=== PATIENT | female | born 1955 | race Caucasian/White ===

== ENCOUNTER → 2019-12-22 13:32 | Outpatient (BNVA) | payer MEDICAID, SELFPAY | PROVIDERS: Family Provider Family Medicine; PCP Family Medicine; Visit Provider Nurse Practitioner | DX: M47.816 Spondylosis without myelopathy or radiculopathy, lumbar region (principal); M51.36 Other intervertebral disc degeneration, lumbar region; M54.2 Cervicalgia; Z79.891 Long term (current) use of opiate analgesic | CPT/HCPCS: 99214 ==

== ENCOUNTER → 2020-01-06 12:58 | Outpatient (BNVA) | payer MEDICAID, SELFPAY | PROVIDERS: Family Provider Family Medicine; PCP Family Medicine; Visit Provider Nurse Practitioner Psychiatric/Mental Health | DX: F33.2 Major depressive disorder, recurrent severe without psychotic features (principal); F43.12 Post-traumatic stress disorder, chronic; F41.1 Generalized anxiety disorder | CPT/HCPCS: 99213 ==

== ENCOUNTER → 2020-04-06 08:16 | Outpatient (BNVA) | payer MEDICAID, SELFPAY | PROVIDERS: Family Provider Family Medicine; PCP Family Medicine; Visit Provider Nurse Practitioner Psychiatric/Mental Health | DX: F33.2 Major depressive disorder, recurrent severe without psychotic features (principal); F43.12 Post-traumatic stress disorder, chronic; F41.1 Generalized anxiety disorder | CPT/HCPCS: 99213 ==

== ENCOUNTER → 2020-05-18 13:16 | Outpatient (BNVA) | payer MEDICAID, SELFPAY | PROVIDERS: Family Provider Family Medicine; PCP Nurse Practitioner Family; Visit Provider Anesthesiology | DX: M50.30 Other cervical disc degeneration, unspecified cervical region (principal); M47.816 Spondylosis without myelopathy or radiculopathy, lumbar region; M51.36 Other intervertebral disc degeneration, lumbar region; M96.1 Postlaminectomy syndrome, not elsewhere classified; Z79.891 Long term (current) use of opiate analgesic | CPT/HCPCS: 99214 ==

== ENCOUNTER → 2020-06-15 16:38 | Outpatient (BNVA) | payer MEDICAID, SELFPAY | PROVIDERS: Family Provider Family Medicine; PCP Nurse Practitioner Family; Visit Provider Nurse Practitioner Family | DX: S86.911A Strain of unspecified muscle(s) and tendon(s) at lower leg level, right leg, initial encounter (principal); E78.2 Mixed hyperlipidemia; E03.9 Hypothyroidism, unspecified; R53.83 Other fatigue; E55.9 Vitamin D deficiency, unspecified; Z79.899 Other long term (current) drug therapy; M25.519 Pain in unspecified shoulder; J44.9 Chronic obstructive pulmonary disease, unspecified; M17.11 Unilateral primary osteoarthritis, right knee | CPT/HCPCS: 73030; 73562; 80053; 80061; 81003; 82306; 83036; 84443; 85007; 85027 ==

== ENCOUNTER → 2020-06-16 13:02 | Outpatient (BNVA) | payer MEDICAID, SELFPAY | PROVIDERS: Family Provider Family Medicine; PCP Nurse Practitioner Family; Visit Provider Anesthesiology | DX: M50.30 Other cervical disc degeneration, unspecified cervical region (principal); M47.816 Spondylosis without myelopathy or radiculopathy, lumbar region; M51.36 Other intervertebral disc degeneration, lumbar region; M96.1 Postlaminectomy syndrome, not elsewhere classified; Z79.891 Long term (current) use of opiate analgesic | CPT/HCPCS: 99213; 99214 ==

== ENCOUNTER → 2020-06-22 08:40 | Outpatient (BNVA) | payer MEDICAID, SELFPAY | PROVIDERS: Family Provider Family Medicine; PCP Nurse Practitioner Family; Visit Provider Nurse Practitioner Psychiatric/Mental Health | DX: F33.2 Major depressive disorder, recurrent severe without psychotic features (principal); F43.12 Post-traumatic stress disorder, chronic; F41.1 Generalized anxiety disorder | CPT/HCPCS: 99214 ==

== ENCOUNTER → 2020-07-14 11:01 | Outpatient (BNVA) | payer MEDICAID, SELFPAY | PROVIDERS: Family Provider Family Medicine; PCP Nurse Practitioner Family; Visit Provider Anesthesiology | DX: M47.816 Spondylosis without myelopathy or radiculopathy, lumbar region (principal); M51.36 Other intervertebral disc degeneration, lumbar region; M96.1 Postlaminectomy syndrome, not elsewhere classified; M50.30 Other cervical disc degeneration, unspecified cervical region; Z79.891 Long term (current) use of opiate analgesic | CPT/HCPCS: 99213; 99214 ==

== ENCOUNTER → 2020-08-05 08:16 | Outpatient (BNVA) | payer MEDICAID, SELFPAY | PROVIDERS: Family Provider Family Medicine; PCP Nurse Practitioner Family; Visit Provider Nurse Practitioner Psychiatric/Mental Health | DX: F33.2 Major depressive disorder, recurrent severe without psychotic features (principal); F43.12 Post-traumatic stress disorder, chronic; F41.1 Generalized anxiety disorder | CPT/HCPCS: 99214 ==

== ENCOUNTER → 2020-08-17 08:28 | Outpatient (BNVA) | payer MEDICAID, SELFPAY | PROVIDERS: Family Provider Family Medicine; PCP Nurse Practitioner Family; Visit Provider Nurse Practitioner Psychiatric/Mental Health | DX: F33.2 Major depressive disorder, recurrent severe without psychotic features (principal); F43.12 Post-traumatic stress disorder, chronic; F41.1 Generalized anxiety disorder; G47.00 Insomnia, unspecified | CPT/HCPCS: 99214 ==

== ENCOUNTER → 2020-09-07 08:18 | Outpatient (BNVA) | payer MEDICAID, SELFPAY | PROVIDERS: Family Provider Family Medicine; PCP Nurse Practitioner Family; Visit Provider Nurse Practitioner Psychiatric/Mental Health | DX: F33.2 Major depressive disorder, recurrent severe without psychotic features (principal); F43.12 Post-traumatic stress disorder, chronic; F41.1 Generalized anxiety disorder; G47.00 Insomnia, unspecified | CPT/HCPCS: 99214 ==

== ENCOUNTER → 2020-09-08 13:00 | Outpatient (BNVA) | payer MEDICAID, SELFPAY | PROVIDERS: Family Provider Family Medicine; PCP Nurse Practitioner Family; Visit Provider Anesthesiology | DX: M47.816 Spondylosis without myelopathy or radiculopathy, lumbar region (principal); M51.36 Other intervertebral disc degeneration, lumbar region; M50.30 Other cervical disc degeneration, unspecified cervical region; M96.1 Postlaminectomy syndrome, not elsewhere classified; Z79.891 Long term (current) use of opiate analgesic | CPT/HCPCS: 99213; 99214 ==

== ENCOUNTER → 2020-09-20 16:30 | Outpatient (BNVA) | payer MEDICAID, SELFPAY | PROVIDERS: Family Provider Family Medicine; PCP Nurse Practitioner Family; Visit Provider Family Medicine | DX: Z20.828 Contact with and (suspected) exposure to other viral communicable diseases (principal); R05 Cough | CPT/HCPCS: 87400; 87635 ==

== ENCOUNTER → 2020-10-19 10:48 | Outpatient (BNVA) | payer MEDICAID, SELFPAY | PROVIDERS: Family Provider Family Medicine; PCP Nurse Practitioner Family; Visit Provider Nurse Practitioner Family | DX: E03.9 Hypothyroidism, unspecified (principal); M10.9 Gout, unspecified; E11.9 Type 2 diabetes mellitus without complications; M19.90 Unspecified osteoarthritis, unspecified site; Z12.31 Encounter for screening mammogram for malignant neoplasm of breast | CPT/HCPCS: 80053; 81003; 83036; 84443; 84550; 85025 ==

== ENCOUNTER → 2020-10-27 08:27 | Outpatient (BNVA) | payer MEDICAID, SELFPAY | PROVIDERS: Family Provider Family Medicine; PCP Nurse Practitioner Family; Visit Provider Nurse Practitioner Psychiatric/Mental Health | DX: F33.2 Major depressive disorder, recurrent severe without psychotic features (principal); F43.12 Post-traumatic stress disorder, chronic; F41.1 Generalized anxiety disorder; G47.00 Insomnia, unspecified | CPT/HCPCS: 99213 ==

== ENCOUNTER → 2020-10-31 16:00 | Outpatient (BNVA) | payer MEDICAID, SELFPAY | PROVIDERS: Family Provider Family Medicine; PCP Nurse Practitioner Family; Visit Provider Family Medicine | DX: E03.9 Hypothyroidism, unspecified (principal); M25.569 Pain in unspecified knee; M10.9 Gout, unspecified; J01.90 Acute sinusitis, unspecified; B96.89 Other specified bacterial agents as the cause of diseases classified elsewhere | CPT/HCPCS: 85025 ==

== ENCOUNTER → 2020-11-09 12:57 | Outpatient (BNVA) | payer MEDICAID, SELFPAY | PROVIDERS: Family Provider Family Medicine; PCP Nurse Practitioner Family; Visit Provider Anesthesiology | DX: M47.816 Spondylosis without myelopathy or radiculopathy, lumbar region (principal); M51.36 Other intervertebral disc degeneration, lumbar region; M96.1 Postlaminectomy syndrome, not elsewhere classified; M50.30 Other cervical disc degeneration, unspecified cervical region; M25.511 Pain in right shoulder; S86.911A Strain of unspecified muscle(s) and tendon(s) at lower leg level, right leg, initial encounter; X58.XXXA Exposure to other specified factors, initial encounter; Z79.891 Long term (current) use of opiate analgesic | CPT/HCPCS: 99214 ==

== ENCOUNTER → 2020-12-13 13:34 | Outpatient (BNVA) | payer MEDICARE, MEDICAID, SELFPAY | PROVIDERS: Family Provider Family Medicine; PCP Nurse Practitioner Family; Visit Provider Nurse Practitioner | DX: M47.816 Spondylosis without myelopathy or radiculopathy, lumbar region (principal); M51.36 Other intervertebral disc degeneration, lumbar region; M50.30 Other cervical disc degeneration, unspecified cervical region; M96.1 Postlaminectomy syndrome, not elsewhere classified; Z79.891 Long term (current) use of opiate analgesic | CPT/HCPCS: 99214 ==

== ENCOUNTER → 2021-01-06 12:30 | Outpatient (BNVA) | payer MEDICARE, MEDICAID, SELFPAY | PROVIDERS: Family Provider Family Medicine; PCP Nurse Practitioner Family; Visit Provider Anesthesiology | DX: M47.816 Spondylosis without myelopathy or radiculopathy, lumbar region (principal); M96.1 Postlaminectomy syndrome, not elsewhere classified; M51.36 Other intervertebral disc degeneration, lumbar region; M50.30 Other cervical disc degeneration, unspecified cervical region; M25.551 Pain in right hip; Z79.891 Long term (current) use of opiate analgesic | CPT/HCPCS: 99213 ==

== ENCOUNTER → 2021-01-25 07:38 | Outpatient (BNVA) | payer MEDICARE, MEDICAID, SELFPAY | PROVIDERS: Family Provider Family Medicine; PCP Nurse Practitioner Family; Visit Provider Nurse Practitioner Psychiatric/Mental Health | DX: F33.2 Major depressive disorder, recurrent severe without psychotic features (principal); F43.12 Post-traumatic stress disorder, chronic; F41.1 Generalized anxiety disorder; G47.00 Insomnia, unspecified | CPT/HCPCS: 99214 ==

== ENCOUNTER 2021-02-08 14:55 | Outpatient (CLI) | payer MEDICARE, MEDICAID, SELFPAY ==
--- NOTE | 2021-02-08 15:30 | MM_ITS ---
WS: [id number] BILATERAL SCREENING DIGITAL MAMMOGRAM WITH CAD HISTORY: Z12.31 - Encounter for screening mammogram for malignant neoplasm of breast COMPARISON: 08/11/2019 and 06/13/2018 Bilateral CC and MLO views submitted. Computer aided detection analyzed. Breast composition: There are scattered areas of fibroglandular density. No suspicious masses, microc alcifications or architectural distortion. Benign calcifications LEFT breast. MM/[place] [id number] IMPRESSION: BI-RADS: 2-Benign FOLLOW UP: 1 Year Follow-up
== END 2021-02-08 14:56 | disposition home or self-care (01) ==
LOC: RADSHAW 14:57
PROVIDERS: PCP Nurse Practitioner Family; Visit Provider Nurse Practitioner Family
DX: Z12.31 Encounter for screening mammogram for malignant neoplasm of breast (principal)
CPT/HCPCS: 77067

== ENCOUNTER 2021-03-03 08:03 | Day surgery (SDC) | payer MEDICARE, MEDICAID, SELFPAY ==
[2021-03-03 08:46] VITALS: BP 107/75; PULSE 61; RESP 18; TEMP 36.4; O2SAT 95
[2021-03-03] MEDS: sodium chloride 0.9% 1,000 ML 30 ML IV (08:54)
--- NOTE | 2021-03-03 09:15 | ANES.PREANE2 ---
Pre-Anesthetic Assessment Pre-Anesthetic Assessment: Height/Weight: Height 1.55 m Temp Pulse Resp BP Pulse Ox 97.6 F 61 18 107/75 95 03/03/21 08:46 03/03/21 08:46 03/03/21 08:46 03/03/21 08:46 03/03/21 08:46 Preop Diagnosis: d Proposed Procedure: Operation Date: 03/03/21 09:30 Proposed Procedures p EGD Dilation W/ Bougie 86287 r11.0(Not Applicable) - Papo Pastor MD Was Beta Cj taken within 24 hours: Yes Was Clonidine taken within 24 hours: N/A Last intake: Intake Last Liquid Date 03/02/21 Last Liquid Time 23:00 Last Solid Date 03/02/21 Last Solid Time 18:00 Social: Social History: Tobacco and No alcohol Exam: Pre-Anes Outpt Exam: alert, oriented x 3, clear to auscultation bilaterally and regular rate & rhythm Airway: Submandibular: WNL Cervical ROM: WNL MP: 2 Dentition: False Pulmonary: Pulmonary: COPD CV/HEM: CV/HEM: CAD and HTN GI: GI: GERD Metabolic: Metabolic: Morbid obesity and Thyroid Musc/skel: Comments: chronic pain/opioid Anesthetic Plan: ASA status: 3 Anesthesia: MAC Risk of > 500 ml blood loss (7ml/kg in children): No Meds/Allergies Current Medications: Current Medications Generic Name Dose Route Start Last Admin Trade Name Freq PRN Reason Stop Dose Admin Sodium Chloride 1,000 mls @ 30 ml s/hr 03/03/21 08:45 03/03/21 08:54 Sodium Chloride 0.9% IV 03/04/21 08:44 30 mls/hr .Q24H ANASTACIA Administration PFSH Anesthesia PFSH: Medical History AC joint pain Arthritis Breast cancer screening by mammogram Cervical post-laminectomy syndrome Chronic idiopathic constipation Chronic nausea Chronic obstructive pulmonary disease Chronic post-traumatic stress disorder DDD (degenerative disc disease), cervical DDD (degenerative disc disease), lumbar Facet syndrome, lumbar Fatigue Generalized anxiety disorder Gout Hypothyroid Insomnia Long-term current use of opiate analgesic Major depressive disorder, recurrent severe without psychotic features Medication management Mixed hyperlipidemia Pain management contract signed Strain of right knee Vitamin D deficiency Surgical History S/P appendectomy S/P cholecystectomy S/P partial hysterectomy S/P right inguinal hernia repair S/P tubal ligation Family History Other Cancer Diabetes Heart disease Social History Smoking and tobacco status: former smoker Second hand smoke exposure: No Alcohol intake: never History of recent travel: No Data Anesthesia Cardiac Studies: No Data to Display
--- NOTE | 2021-03-03 09:28 | P.HP_ITS ---
Same Day Surgery H&P Indication for Procedure/HPI DATE OF PROCEDURE: March 03, 2021 CHIEF COMPLAINT/INDICATIONFOR SURGICAL PROCEDURE: Ongoing nausea and dysphagia PREOP DIAGNOSIS: d PLANNED PROCEDRUE: Operation Date: 03/03/21 09:30 Proposed Procedures p EGD Dilation W/ Bougie 26136 r11.0(Not Applicable) - Papo Pastor MD Medications/Allergies* Home Medications Medication Instructions Recorded Confirmed Type aspirin 81 mg chewable tablet 81 mg PO DAILY 12/21/19 03/02/21 History fenofibrate nanocrystallized 145 145 mg PO DAILY 12/21/19 03/02/21 History mg tablet nitroglycerin 0.4 mg sublingual 0.4 mg SUBLINGUAL Q5M PRN 12/21/19 03/02/21 History tablet simvastatin 40 mg tablet 40 mg PO DAILY 07/05/20 03/02/21 History levocetirizine 5 mg tablet 5 mg PO DAILY 11/30/20 03/02/21 History potassium 99 mg tablet 99 mg PO DAILY tab 11/30/20 03/02/21 History simethicone 125 mg capsule 125 mg PO DAILY PRN 11/30/20 03/02/21 History allopurinol 100 mg PO DAILY 02/22/21 03/02/21 History ergocalciferol (vitamin D2) 1,250 mcg PO DAILY 02/22/21 03/02/21 History levothyroxine 50 mcg PO DAILY 02/22/21 03/02/21 History polyethylene glycol 3350 17 g PO DAILY 02/22/21 03/02/21 History Allergies/Adverse Reactions Allergy/AdvReac Type Severity Reaction Status Date / Time fluticasone Allergy ALGY Verified 02/08/21 13:45 [From Advair Diskus] salmeterol Allergy ALGY-Anaphy Verified 02/08/21 13:45 [From Advair Diskus] laxis butorphanol [From Stadol] AdvReac MAKES Verified 02/08/21 13:45 HER CRAZY fluoxetine [From Prozac] AdvReac rash Verified 02/08/21 13:45 Current Medications: Generic Name Dose Route Start Last Admin Trade Name Freq PRN Reason Stop Dose Admin Sodium Chloride 1,000 mls @ 30 mls/hr 03/03/21 08:45 03/03/21 08:54 Sodium Chloride 0.9% IV 03/04/21 08:44 30 mls/hr .Q24H ANASTACIA Administration Pertinent History/Comorbid Conditions* Medical History (Updated 01/26/21 @ 19:10 by SIL Martins) AC joint pain Arthritis Breast cancer screening by mammogram Cervical post-laminectomy syndrome Chronic idiopathic constipation Chronic nausea Chronic obstructive pulmonary disease Chronic post-traumatic stress disorder DDD (degenerative disc disease), cervical DDD (degenerative disc disease), lumbar Facet syndrome, lumbar Fatigue Generalized anxiety disorder Gout Hypothyroid Insomnia Long-term current use of opiate analgesic Major depressive disorder, recurrent severe without psychotic features Medication management Mixed hyperlipidemia Pain management contract signed Strain of right knee Vitamin D deficiency Surgical History (Updated 06/15/20 @ 16:21 by SIL Martins) S/P appendectomy S/P cholecystectomy S/P partial hysterectomy S/P right inguinal hernia repair S/P tubal ligation Family History (Updated 12/21/19 @ 14:20 by Casandra Maria LPN) Diabetes Heart disease Cancer Social History Smoking and tobacco status: former smoker Second hand smoke exposure: No Alcohol intake: never History of recent travel: No Pertinent Exam Findings alert, oriented x 3, clear to auscultation bilaterally, regular rate & rhythm and procedure specific exam findings Recommendations Surgery/Procedure today Coding Level of Care Code Acute Ultrasonic Tester for [facility]
[2021-03-03 09:55] VITALS: BP 113/80; PULSE 54; RESP 16; TEMP 36.3; O2SAT 54
--- NOTE | 2021-03-03 10:40 | ANE.PACU2 ---
Inpatient post-anesthesia follow up: Airway intact: Yes Vital signs: Temperature 97.4 F Pulse Rate 54 Respiratory Rate 16 Blood Pressure 113/80 Pulse Oximetry 54 Oxygen Delivery Me thod Room Air Oxygen Flow Rate Fraction of Inspir ed Oxygen Hydration adequate: Yes Nausea and vomiting: No Pain level: 1 Mental status: Baseline
[2021-03-06 07:11] LABS: H. Pylori / CLO Test Negative
== END 2021-03-03 10:30 | disposition home or self-care (01) ==
PROVIDERS: PCP Nurse Practitioner Family; Visit Provider Internal Medicine
DX: R13.10 Dysphagia, unspecified (principal); R11.0 Nausea; K21.00 Gastro-esophageal reflux disease with esophagitis, without bleeding; K29.70 Gastritis, unspecified, without bleeding; Z79.82 Long term (current) use of aspirin; M19.90 Unspecified osteoarthritis, unspecified site; E03.9 Hypothyroidism, unspecified; Z79.891 Long term (current) use of opiate analgesic; E78.2 Mixed hyperlipidemia; Z87.891 Personal history of nicotine dependence; J44.9 Chronic obstructive pulmonary disease, unspecified; I25.10 Atherosclerotic heart disease of native coronary artery without angina pectoris; I10 Essential (primary) hypertension; E66.01 Morbid (severe) obesity due to excess calories
CPT/HCPCS: 43239; 87077; 96360; 96361; J2704; J7030

== ENCOUNTER → 2021-03-08 13:26 | Outpatient (BNVA) | payer MEDICARE, MEDICAID, SELFPAY | PROVIDERS: PCP Nurse Practitioner Family; Visit Provider Anesthesiology | DX: M51.36 Other intervertebral disc degeneration, lumbar region (principal); M47.816 Spondylosis without myelopathy or radiculopathy, lumbar region; M25.551 Pain in right hip; M96.1 Postlaminectomy syndrome, not elsewhere classified; M50.30 Other cervical disc degeneration, unspecified cervical region; Z79.891 Long term (current) use of opiate analgesic | CPT/HCPCS: 99213 ==

== ENCOUNTER → 2021-03-23 15:22 | Outpatient (BNVA) | payer MEDICARE, MEDICAID, SELFPAY | PROVIDERS: PCP Nurse Practitioner Family; Visit Provider Nurse Practitioner Family | DX: J06.9 Acute upper respiratory infection, unspecified (principal); R11.0 Nausea; R68.89 Other general symptoms and signs | CPT/HCPCS: 87400 ==

== ENCOUNTER → 2021-03-31 15:54 | Outpatient (BNVA) | payer MEDICARE, MEDICAID, SELFPAY | PROVIDERS: PCP Nurse Practitioner Family; Visit Provider Nurse Practitioner Family | DX: R30.0 Dysuria (principal) | CPT/HCPCS: 81000 ==

== ENCOUNTER → 2021-04-26 07:24 | Outpatient (BNVA) | payer MEDICARE, MEDICAID, SELFPAY | PROVIDERS: PCP Nurse Practitioner Family; Visit Provider Nurse Practitioner Psychiatric/Mental Health | DX: F33.2 Major depressive disorder, recurrent severe without psychotic features (principal); F43.12 Post-traumatic stress disorder, chronic; F41.1 Generalized anxiety disorder; G47.00 Insomnia, unspecified | CPT/HCPCS: 99214 ==

== ENCOUNTER 2021-05-03 12:52 | Outpatient (CLI) | payer MEDICARE, MEDICAID, SELFPAY ==
[2021-05-03] MEDS: iohexol 300 mg/mL 50 mL Btl PO (13:41)
--- NOTE | 2021-05-03 14:30 | CT_ITS ---
WS: [id number] CT ABDOMEN PELVIS TECHNIQUE: Contrast-enhanced CT of the abdomen and pelvis with coronal and sagittal reformatted image s. CLINICAL INFORMATION: R10.31 - Right lower quadrant pain COMPARISON: CT 4 DLP: 1117.[address] scans at [facility] use at least one of these dose optimization techniques: automat ed exposure control; mA and/or kV adjustment per patient size (includes targeted exams where dose is matched to clinical indication); or iterative reconstruction. FINDINGS: Diffuse fatty infiltration liver. Normal portal vein and splenic vein. Cholecystectomy clips. Mild fa tty atrophy of the pancreas. Normal spleen. Normal GE junction. Lung bases are well aerated. Adrenal glands are normal. Normal renal parenchymal enhancement. No hydronephrosis. Left renal cyst measuring 3.5 x 3.2 CM. Normal caliber abdominal aorta. Aortic calcification. Normal sigmoid colon. No evidence of small or large bowel obstruction. Prior ventral abdominal wall h ernia repair. Mild lumbar curve. Prior hysterectomy. CT/CT abdomen pelvis w con* [id number] IMPRESSION: 1. Diffuse fatty infiltration of the liver. Hepatomegaly. 2. Prior cholecystectomy. 3. No hydronephrosis in either kidney. 4. Left renal cyst measuring 3.5 x 3.2 CM. 5. No free fluid in the abdomen or pelvis. 6. No abdominal or pelvic lymphadenopathy. No inguinal lymphadenopathy.
[2021-05-03 14:44] LABS: Blood Urea Nitrogen 19 mg/dL (8-23); Glomerular Filtration Rate 45.1 mL/min (90-130)
[2021-05-03] MEDS: iodixanol 320 mg/mL 100mL Btl IV (14:50)
== END 2021-05-03 12:53 | disposition home or self-care (01) ==
LOC: RADWPI 12:53
PROVIDERS: PCP Nurse Practitioner Family; Visit Provider Surgery
DX: R10.31 Right lower quadrant pain (principal); R10.11 Right upper quadrant pain; K76.0 Fatty (change of) liver, not elsewhere classified; R16.0 Hepatomegaly, not elsewhere classified; Z90.49 Acquired absence of other specified parts of digestive tract; N28.1 Cyst of kidney, acquired
CPT/HCPCS: 74177; 82565; 84520; Q9967

== ENCOUNTER → 2021-05-09 12:18 | Outpatient (BNVA) | payer MEDICARE, MEDICAID, SELFPAY | PROVIDERS: PCP Nurse Practitioner Family; Visit Provider Anesthesiology | DX: G89.29 Other chronic pain (principal); M51.36 Other intervertebral disc degeneration, lumbar region; M47.816 Spondylosis without myelopathy or radiculopathy, lumbar region; M96.1 Postlaminectomy syndrome, not elsewhere classified; M50.30 Other cervical disc degeneration, unspecified cervical region; Z79.891 Long term (current) use of opiate analgesic; Z87.891 Personal history of nicotine dependence | CPT/HCPCS: 99214 ==

== ENCOUNTER → 2021-05-11 15:18 | Outpatient (BNVA) | payer MEDICARE, MEDICAID, SELFPAY | PROVIDERS: PCP Nurse Practitioner Family; Visit Provider Nurse Practitioner Family | DX: J44.9 Chronic obstructive pulmonary disease, unspecified (principal); M19.90 Unspecified osteoarthritis, unspecified site; Z98.890 Other specified postprocedural states; E11.9 Type 2 diabetes mellitus without complications; M10.9 Gout, unspecified; E78.2 Mixed hyperlipidemia; E55.9 Vitamin D deficiency, unspecified; E03.9 Hypothyroidism, unspecified | CPT/HCPCS: 73502; 80053; 80061; 81003; 82306; 83036; 84443; 85025 ==

== ENCOUNTER → 2021-05-29 08:53 | Outpatient (BNVA) | payer MEDICARE, MEDICAID, SELFPAY | PROVIDERS: PCP Nurse Practitioner Family; Visit Provider Nurse Practitioner Family | DX: R94.4 Abnormal results of kidney function studies (principal) | CPT/HCPCS: 82043 ==

== ENCOUNTER 2021-05-31 15:21 | Outpatient (CLI) | payer MEDICARE, MEDICAID, SELFPAY ==
--- NOTE | 2021-05-31 15:36 | XR_ITS ---
WS: [id number] Lumbar spine, AP and erect, L5-S1 spot, both obliques, lateral erect in flexion, extension and neutra l position, 05/31/2021 Clinical Data: M79.604 - Pain in right leg Comparison: None. Findings: No compression fractures or subluxation is seen. There is degenerative disc narrowing at L3-L4, L4-L5 and L5-S1. There is osteoarthritic spurring from L1 through L5. The transverse processes and SI join ts are normal. There is a dextroscoliosis. The oblique films show no spondylolysis. No limitation of motion or sublu xation is seen on flexion or extension. There is a large amount of fecal material throughout the colo n. XR/XR lumbar spine 6V w f/e [id number] Impression: 1. Dextroscoliosis with osteoarthritis and degenerative disc narrowing at L3-L4 through L5-S1. 2. No spondylolysis. 3. Negative for limitation of motion or subluxation on flexion or extension.
== END 2021-05-31 15:22 | disposition home or self-care (01) ==
PROVIDERS: PCP Nurse Practitioner Family; Visit Provider Nurse Practitioner Family
DX: M79.604 Pain in right leg (principal); M54.5 Low back pain; M41.86 Other forms of scoliosis, lumbar region; M47.816 Spondylosis without myelopathy or radiculopathy, lumbar region
CPT/HCPCS: 72114

== ENCOUNTER 2021-06-27 06:00 | Outpatient (RCR) | payer MEDICARE, MEDICAID, SELFPAY | END 2021-07-11 23:59 | disposition home or self-care (01) | LOC: WPT 06:00 | PROVIDERS: PCP Nurse Practitioner Family; Referring Provider Nurse Practitioner Family; Visit Provider Nurse Practitioner Family | DX: M54.9 Dorsalgia, unspecified (principal); G89.29 Other chronic pain; M79.604 Pain in right leg | CPT/HCPCS: 97110; 97112; 97140; 97163 ==

== ENCOUNTER → 2021-06-28 11:49 | Outpatient (BNVA) | payer MEDICARE, MEDICAID, SELFPAY | PROVIDERS: PCP Nurse Practitioner Family; Visit Provider Nurse Practitioner Family | DX: R94.4 Abnormal results of kidney function studies (principal) | CPT/HCPCS: 82043 ==

== ENCOUNTER → 2021-07-04 14:20 | Outpatient (BNVA) | payer MEDICARE, MEDICAID, SELFPAY | PROVIDERS: PCP Nurse Practitioner Family; Visit Provider Anesthesiology | DX: G89.29 Other chronic pain (principal); M51.36 Other intervertebral disc degeneration, lumbar region; M47.816 Spondylosis without myelopathy or radiculopathy, lumbar region; M50.30 Other cervical disc degeneration, unspecified cervical region; M25.511 Pain in right shoulder; M96.1 Postlaminectomy syndrome, not elsewhere classified; Z98.890 Other specified postprocedural states; Z79.891 Long term (current) use of opiate analgesic; Z87.891 Personal history of nicotine dependence | CPT/HCPCS: 99214 ==

== ENCOUNTER 2021-07-12 06:00 | Outpatient (RCR) | payer MEDICARE, MEDICAID, SELFPAY | END 2021-08-10 23:59 | disposition home or self-care (01) | LOC: WPT 06:00 | PROVIDERS: PCP Nurse Practitioner Family; Referring Provider Nurse Practitioner Family; Visit Provider Nurse Practitioner Family | DX: M54.9 Dorsalgia, unspecified (principal); G89.29 Other chronic pain; M79.604 Pain in right leg | CPT/HCPCS: 97110 ==

== ENCOUNTER → 2021-07-24 07:30 | Outpatient (BNVA) | payer MEDICARE, MEDICAID, SELFPAY | PROVIDERS: PCP Nurse Practitioner Family; Visit Provider Nurse Practitioner Psychiatric/Mental Health | DX: F43.12 Post-traumatic stress disorder, chronic (principal); F41.1 Generalized anxiety disorder; G47.00 Insomnia, unspecified; F33.2 Major depressive disorder, recurrent severe without psychotic features | CPT/HCPCS: 99214 ==

== ENCOUNTER → 2021-09-08 13:21 | Outpatient (BNVA) | payer MEDICARE, MEDICAID, SELFPAY | PROVIDERS: PCP Nurse Practitioner Family; Visit Provider Anesthesiology | DX: G89.29 Other chronic pain (principal); M50.30 Other cervical disc degeneration, unspecified cervical region; M51.36 Other intervertebral disc degeneration, lumbar region; M47.816 Spondylosis without myelopathy or radiculopathy, lumbar region; M96.1 Postlaminectomy syndrome, not elsewhere classified; Z98.890 Other specified postprocedural states; Z79.899 Other long term (current) drug therapy; Z79.891 Long term (current) use of opiate analgesic | CPT/HCPCS: 99214 ==

== ENCOUNTER → 2021-10-31 13:44 | Outpatient (BNVA) | payer MEDICARE, MEDICAID, SELFPAY | PROVIDERS: PCP Nurse Practitioner Family; Visit Provider Anesthesiology | DX: G89.29 Other chronic pain (principal); M50.30 Other cervical disc degeneration, unspecified cervical region; M25.511 Pain in right shoulder; M51.36 Other intervertebral disc degeneration, lumbar region; M47.816 Spondylosis without myelopathy or radiculopathy, lumbar region; M96.1 Postlaminectomy syndrome, not elsewhere classified; Z98.890 Other specified postprocedural states; Z79.891 Long term (current) use of opiate analgesic | CPT/HCPCS: 99214 ==

== ENCOUNTER 2022-01-17 11:23 | Outpatient (CLI) | payer MEDICARE, MEDICAID, SELFPAY ==
--- NOTE | 2022-01-17 12:06 | CT_ITS ---
WS: [id number] LDCT LUNG CANCER SCREENING TECHNIQUE: Noncontrast CT of the chest with coronal and sagittal reformatted images. CLINICAL INFORMATION: NICOTINE DEPENDENCE, CIGARETTES COMPARISON: None. DLP: 80.01 mGy.cm DIvol: Mean CTDIvol: 1.60 (mGy) All CT scans at [facility] use at least one of these dose optimization techniques: automat ed exposure control; mA and/or kV adjustment per patient size (includes targeted exams where dose is matched to clinical indication); or iterative reconstruction. FINDINGS: Mild chronic emphysematous changes. No acute pulmonary infiltrates. Noncalcified nodule RIGHT upper l obe measuring 6 mm. Calcified granuloma RIGHT upper lobe. Slight atelectasis in the lingula. Slightly ectatic ascending thoracic aorta measuring 3.7 cm. No mediastinal or hilar lymphadenopathy. Calcified hilar nodes. Coronary calcification. Normal GE junction. Cholecystectomy clips. Adrenal gla nds are normal. LEFT upper pole renal cyst measuring 4.3 cm. Fatty atrophy of the pancreas. Splenic g ranulomas. Mild thoracic kyphosis. Postoperative changes lower cervical spine. CT/CT lung screening [id number] IMPRESSION: LUNG-RADS: 2-Benign Appearance or Behavior FOLLOW UP: 12 Month: Continue annual screening with LDCT
== END 2022-01-17 11:24 | disposition home or self-care (01) ==
LOC: RAD 11:33
PROVIDERS: PCP Nurse Practitioner Family; Visit Provider Internal Medicine Pulmonary Disease
DX: Z12.2 Encounter for screening for malignant neoplasm of respiratory organs (principal); F17.210 Nicotine dependence, cigarettes, uncomplicated; I77.810 Thoracic aortic ectasia; I25.10 Atherosclerotic heart disease of native coronary artery without angina pectoris
CPT/HCPCS: 71271

== ENCOUNTER → 2022-01-24 12:26 | Outpatient (BNVA) | payer MEDICARE, MEDICAID, SELFPAY | PROVIDERS: PCP Nurse Practitioner Family; Visit Provider Nurse Practitioner Family | DX: E11.9 Type 2 diabetes mellitus without complications (principal); E55.9 Vitamin D deficiency, unspecified; E78.2 Mixed hyperlipidemia; E03.9 Hypothyroidism, unspecified | CPT/HCPCS: 80053; 80061; 81003; 82306; 83036; 84443; 85025 ==

== ENCOUNTER 2022-02-14 13:43 | Outpatient (CLI) | payer MEDICARE, MEDICAID, SELFPAY ==
--- NOTE | 2022-02-14 14:14 | PFTS_ITS ---
Date of Study:02/14/22 Date of Dictation: MECHANICS: Forced vital capacity (FVC) is normal. Forced expiratory volume in one second (FEV1) is normal. FEV1/FVC is normal. FLOW VOLUME LOOP: Normal. LUNG VOLUMES: Not measured DIFFUSING CAPACITY FOR CARBON MONOXIDE: Normal. INTERPRETATION: The prebronchodilator spirometry is normal. Lung volumes are not measured. Gas exchange (DLCO) is normal. MTDD
== END 2022-02-14 13:44 | disposition home or self-care (01) ==
LOC: RT 13:46
PROVIDERS: PCP Nurse Practitioner Family; Visit Provider Internal Medicine Pulmonary Disease
DX: J44.9 Chronic obstructive pulmonary disease, unspecified (principal)
CPT/HCPCS: 94010; 94618; 94729

== ENCOUNTER → 2022-02-28 12:38 | Outpatient (BNVA) | payer MEDICARE, MEDICAID, SELFPAY | PROVIDERS: PCP Nurse Practitioner Family; Visit Provider Nurse Practitioner Psychiatric/Mental Health | DX: F33.2 Major depressive disorder, recurrent severe without psychotic features (principal); F43.12 Post-traumatic stress disorder, chronic; F41.1 Generalized anxiety disorder; G47.00 Insomnia, unspecified | CPT/HCPCS: 99214 ==

== ENCOUNTER → 2022-06-04 10:56 | Outpatient (BNVA) | payer MEDICARE, MEDICAID, SELFPAY | PROVIDERS: PCP Nurse Practitioner Family; Visit Provider Nurse Practitioner | DX: E11.9 Type 2 diabetes mellitus without complications (principal); E03.9 Hypothyroidism, unspecified; E78.2 Mixed hyperlipidemia; R53.83 Other fatigue | CPT/HCPCS: 80053; 80061; 83036; 84443; 85025 ==

== ENCOUNTER 2022-09-27 13:51 | Outpatient (CLI) | payer MEDICARE, MEDICAID, SELFPAY ==
--- NOTE | 2022-09-27 | CT_ITS ---
WS: [id number] CT CERVICAL SPINE TECHNIQUE: Noncontrast CT of the cervical spine with coronal and sagittal reformatted images. CLINICAL INFORMATION: PAIN COMPARISON: None. DLP: 344.[address] scans at [facility] use at least one of these dose optimization techniques: automated e xposure control; mA and/or kV adjustment per patient size (includes targeted exams where dose is matc hed to clinical indication); or iterative reconstruction. FINDINGS: Straightening of the normal cervical lordosis. Mild cervical curve. Postoperative changes anterior ce rvical fusion C5-C6. No evidence of hardware loosening. C2-C3: Normal. C3-C4: Mild LEFT facet arthropathy. Mild LEFT and no significant RIGHT foraminal narrowing. Spinal ca nal is patent. C4-C5: Tiny shallow central protrusion. Slight effacement of ventral thecal sac. Mild facet arthropat hy. Mild LEFT foraminal narrowing. C5-C6: Postoperative changes anterior cervical fusion. Mild LEFT and no significant RIGHT foraminal n arrowing. Osteophytic ridging. Spinal canal is patent. C6-C7: Mild disc osteophytic ridging. Mild LEFT and no RIGHT foraminal narrowing. Spinal canal is pat ent. C7-T1: No significant disc bulging. Spinal canal and foramen are patent. Visualized posterior nasopharynx: Normal. Prevertebral soft tissues: Normal. CT/CT cervical spin wo con* [id number] IMPRESSION: 1. Straightening of the normal cervical lordosis. Postoperative changes anteri or cervical fusion C5-C6. No evidence of hardware loosening. 2. No high-grade central canal stenosis. 3. Tiny central protrusion C4-C5 with mild central canal stenosis. 4. Otherwise mild bony foraminal narrowing worse at LEFT C5-C6 and LEFT C6-C7.
--- NOTE | 2022-09-27 | CT_ITS ---
WS: [id number] CT LUMBAR SPINE TECHNIQUE: Noncontrast CT of the lumbar spine with coronal and sagittal reformatted images. CLINICAL INFORMATION: PAIN COMPARISON: MRI 8 15,012 DLP: 1261.[address] scans at [facility] use at least one of these dose optimization techniques: automated e xposure control; mA and/or kV adjustment per patient size (includes targeted exams where dose is matc hed to clinical indication); or iterative reconstruction. FINDINGS: Mild lumbar curve. No acute compression. Disc space narrowing worse at L3-L4 L4-L5 and L5-S1 worse L5 -S1. Endplate osteophytic ridging. Adrenal glands are normal. LEFT renal cyst measuring 4.1 cm. Remote appearing RIGHT hemilaminectomy L4-L5. Disc space narrowing has progressed at L3-L5 since 2011 L1-L2: Normal L2-L3: Mild annular bulging. Spinal canal is patent. Mild LEFT foraminal narrowing. Mild facet arthro koffi. L3-L4: : Mild annular bulging with mild to moderate central canal stenosis. Impingement traversing L4 nerve roots bilaterally. Advanced facet arthropathy ligamentum flavum hypertrophy. Mild LEFT foramin al narrowing. Slight impingement on the exiting LEFT L3 nerve root. L4-L5: Disc desiccation with vacuum disc phenomenon. Osteophytic ridging. Narrowing of the LEFT great er than RIGHT subarticular recess. Moderate facet arthropathy. Mild RIGHT foraminal narrowing. L5-S1: Mild disc bulging with slight impingement on traversing RIGHT greater than LEFT S1 nerve roots . Moderate facet arthropathy with ligamentum flavum hypertrophy. Mild RIGHT foraminal narrowing. Visualized pelvic bony structures: Normal. Paravertebral soft tissues: Normal. CT/CT lumbar spine wo con* [id number] IMPRESSION: 1. Mild lumbar curve. No acute compression. Disc desiccation L3-L5 has progres sed since 2012. 2. Mild to moderate central canal stenosis L3-L4 3. Mild foraminal narrowing worse at LEFT L3-L4, RIGHT L4-L5, and RIGHT L5-S1. 4. Moderate facet arthropathy L3-L5. 5. Evidence of prior remote laminectomy defects RIGHT L4-L5.
== END 2022-09-27 13:52 | disposition home or self-care (01) ==
LOC: RAD 13:57
PROVIDERS: PCP Family Medicine; Visit Provider General Practice
DX: M54.2 Cervicalgia (principal); M50.221 Other cervical disc displacement at C4-C5 level
CPT/HCPCS: 72125; 72131

== ENCOUNTER → 2022-11-13 13:04 | Outpatient (BNVA) | payer MEDICARE, MEDICAID, SELFPAY | PROVIDERS: PCP Family Medicine; Visit Provider Family Medicine | DX: M25.511 Pain in right shoulder (principal); M25.532 Pain in left wrist | CPT/HCPCS: 73110; 73130 ==

== ENCOUNTER → 2022-12-25 14:51 | Outpatient (BNVA) | payer MEDICARE, MEDICAID, SELFPAY | PROVIDERS: PCP Family Medicine; Visit Provider Family Medicine | DX: M25.511 Pain in right shoulder (principal); M25.539 Pain in unspecified wrist; M79.643 Pain in unspecified hand | CPT/HCPCS: 73100; 73130 ==

== ENCOUNTER → 2023-01-09 13:25 | Outpatient (BNVA) | payer MEDICARE, MEDICAID, OTHER, SELFPAY | PROVIDERS: PCP Family Medicine; Visit Provider Nurse Practitioner Psychiatric/Mental Health | DX: Z79.899 Other long term (current) drug therapy (principal); G47.00 Insomnia, unspecified; F33.2 Major depressive disorder, recurrent severe without psychotic features; F43.12 Post-traumatic stress disorder, chronic; F41.1 Generalized anxiety disorder | CPT/HCPCS: 84439; 84443; 84481 ==

== ENCOUNTER 2023-02-07 11:36 | Outpatient (CLI) | payer MEDICARE, MEDICAID, SELFPAY ==
--- NOTE | 2023-02-07 11:42 | CT_ITS ---
WS: [id number] CT LEFT HAND, NONCONTRAST, 3-D. HISTORY: M79.643 - Pain in unspecified hand Technique: All CT scans at [facility] use at least one of these dose optimization techniques: automated exposure control; mA and/or kV adjustment per patient size (includes targeted exams where dose is matched to clinical indication); or iterative reconstruction. DLP: 173.68 mGy.cm COMPARISON: Hand radiographs 12/25/2019. No fractures or dislocations. There is mild osteopenia and narrowing of the intercarpal joint spaces and the interphalangeal joints. No soft tissue abnormalities. Small cyst in the lunate. Normal distal radial ulnar joint. CT/CT hand LT wo con* [id number] IMPRESSION: No acute fracture LEFT hand. Very minimal degenerative changes in the carpal bones at the interphalangeal lynn ints.
--- NOTE | 2023-02-07 12:00 | CT_ITS ---
WS: [id number] CT LEFT WRIST, NONCONTRAST, 3-D. HISTORY: M25.539 - Pain in unspecified wrist pain, fall 7 months ago. Technique: All CT scans at [facility] use at least one of these dose optimization techniques: automated exposure control; mA and/or kV adjustment per patient size (includes targeted exams where dose is matched to clinical indication); or iterative reconstruction. DLP: 173.68 mGy.cm COMPARISON: Radiograph 12/25/2022 Mild narrowing of the radiocarpal joint. No widening of the scapholunate interval. The distal radius and ulna are intact. No fractures. There is a very small lucency in the lunate. No fractures are iden tified. There are some small osteophytes. Loose bodies identified. No soft tissue edema. IMPRESSION: 1. Very mild degenerative changes in the carpal bones. No fractures. 2. Scaphoid is intact. 3. Mild degenerative cyst in the lunate.
== END 2023-02-07 11:37 | disposition home or self-care (01) ==
PROVIDERS: PCP Family Medicine; Visit Provider Family Medicine
DX: M79.642 Pain in left hand (principal); M25.532 Pain in left wrist
CPT/HCPCS: 73200

== ENCOUNTER 2023-03-21 12:33 | Outpatient (CLI) | payer MEDICARE, MEDICAID, SELFPAY ==
--- NOTE | 2023-03-21 12:43 | MM_ITS ---
WS: [id number] BILATERAL 3D TOMOSYNTHESIS DIGITAL SCREENING MAMMOGRAPHY WITH CAD CLINICAL INFORMATION: Z12.31 - Encounter for screening mammogram for malignant ... HISTORY: Screening mammogram. No current complaints. COMPARISON: 2020 TECHNIQUE: Bilateral CC and MLO views. FINDINGS: Scattered fibroglandular densities bilaterally. No suspicious focal mass, asymmetry, calcifications, or architectural distortion. No evidence of malignancy. Incidental punctate calcifications. MM/[place] [id number] IMPRESSION: BI-RADS: 2-Benign FOLLOW UP: 1 Year Follow-up Recommend return to annual screening mammography.
== END 2023-03-21 12:34 | disposition home or self-care (01) ==
PROVIDERS: PCP Family Medicine; Visit Provider Family Medicine
DX: Z12.31 Encounter for screening mammogram for malignant neoplasm of breast (principal)
CPT/HCPCS: 77063; 77067

== ENCOUNTER → 2023-04-04 09:37 | Outpatient (BNVA) | payer MEDICARE, MEDICAID, SELFPAY | PROVIDERS: PCP Family Medicine; Visit Provider Family Medicine | DX: E11.9 Type 2 diabetes mellitus without complications (principal); E03.9 Hypothyroidism, unspecified; E78.2 Mixed hyperlipidemia; R53.83 Other fatigue; Z79.899 Other long term (current) drug therapy | CPT/HCPCS: 80053; 80061; 83036; 84443; 85025 ==

== ENCOUNTER → 2023-05-09 12:57 | Outpatient (BNVA) | payer MEDICARE, MEDICAID, OTHER, SELFPAY | PROVIDERS: PCP Family Medicine; Referring Provider Family Medicine; Visit Provider Student in an Organized Health Care Education/Training Program | DX: M67.332 Transient synovitis, left wrist (principal) | CPT/HCPCS: 20605; 20610; 73110; 99203; J3301; J3490 ==

== ENCOUNTER → 2023-06-28 11:12 | Outpatient (BNVA) | payer MEDICARE, MEDICAID, OTHER, SELFPAY | PROVIDERS: PCP Family Medicine; Visit Provider Family Medicine | DX: Z79.899 Other long term (current) drug therapy (principal); E11.9 Type 2 diabetes mellitus without complications | CPT/HCPCS: 80053 ==

== ENCOUNTER → 2023-10-08 12:12 | Outpatient (BNVA) | payer MEDICARE, MEDICAID, OTHER, SELFPAY | PROVIDERS: PCP Family Medicine; Visit Provider Nurse Practitioner Family | DX: E11.9 Type 2 diabetes mellitus without complications (principal); E03.9 Hypothyroidism, unspecified; E78.2 Mixed hyperlipidemia; E66.9 Obesity, unspecified; E55.9 Vitamin D deficiency, unspecified; E78.5 Hyperlipidemia, unspecified; I10 Essential (primary) hypertension | CPT/HCPCS: 80053; 80061; 81003; 82306; 83036; 84443; 85025 ==

== ENCOUNTER → 2024-03-20 11:11 | Outpatient (BNVA) | payer MEDICARE, SELFPAY ==
[2023-11-07 13:06] VITALS: BP 111/74; BMI 32.4
== END ==
PROVIDERS: PCP Nurse Practitioner Family; Visit Provider Physician Assistant
DX: M17.12 Unilateral primary osteoarthritis, left knee (principal); M17.11 Unilateral primary osteoarthritis, right knee
CPT/HCPCS: 20610; 73560; 73565; 99203; J3301

== ENCOUNTER 2024-04-15 12:44 | Outpatient (CLI) | payer MEDICARE, SELFPAY ==
[2023-11-07 13:06] VITALS: BP 111/74; BMI 32.4
--- NOTE | 2024-04-15 13:00 | MM_ITS ---
WS: [id number] BILATERAL 3D TOMOSYNTHESIS DIGITAL SCREENING MAMMOGRAPHY WITH CAD CLINICAL INFORMATION: Z12.39 - Encounter for other screening for malignant neop... HISTORY: Screening mammogram. No current complaints. COMPARISON: 2022 TECHNIQUE: Bilateral CC and MLO views. FINDINGS: Scattered fibroglandular densities bilaterally. No suspicious focal mass, asymmetry, calcifications, or architectural distortion. No evidence of malignancy. A few incidental punctate calcifications. MM/[place] [id number] IMPRESSION: BI-RADS: 2-Benign FOLLOW UP: 1 Year Follow-up Recommend return to annual screening mammography.
== END 2024-04-15 12:45 | disposition home or self-care (01) ==
LOC: MOBLMAM 12:48
PROVIDERS: PCP Nurse Practitioner Family; Visit Provider Nurse Practitioner Family
DX: Z12.39 Encounter for other screening for malignant neoplasm of breast (principal); Z12.31 Encounter for screening mammogram for malignant neoplasm of breast; R92.323 Mammographic fibroglandular density, bilateral breasts; R92.1 Mammographic calcification found on diagnostic imaging of breast
CPT/HCPCS: 77063; 77067

== ENCOUNTER → 2024-06-18 11:40 | Outpatient (BNVA) | payer MEDICARE, SELFPAY ==
[2023-11-07 13:06] VITALS: BP 111/74; BMI 32.4
== END ==
PROVIDERS: PCP Nurse Practitioner Family; Visit Provider Nurse Practitioner Family
DX: E11.9 Type 2 diabetes mellitus without complications (principal); E03.9 Hypothyroidism, unspecified; E78.2 Mixed hyperlipidemia
CPT/HCPCS: 80053; 80061; 81003; 83036; 84443; 85025

== ENCOUNTER → 2024-10-20 11:13 | Outpatient (BNVA) | payer MEDICARE, SELFPAY ==
[2024-07-02 13:20] VITALS: BP 120/60; BMI 32.5
== END ==
PROVIDERS: PCP Nurse Practitioner Family; Visit Provider Nurse Practitioner Family
DX: E11.9 Type 2 diabetes mellitus without complications (principal); E55.9 Vitamin D deficiency, unspecified; E78.2 Mixed hyperlipidemia; E03.9 Hypothyroidism, unspecified; M10.9 Gout, unspecified; Z79.899 Other long term (current) drug therapy
CPT/HCPCS: 80053; 80061; 82306; 82570; 83036; 84156; 84550; 85025

== ENCOUNTER → 2025-03-10 10:01 | Outpatient (BNVA) | payer MEDICARE, SELFPAY ==
[2024-12-11 08:38] VITALS: BP 108/71; BMI 30.2
== END ==
PROVIDERS: PCP Nurse Practitioner Family; Visit Provider Nurse Practitioner Family
DX: E78.2 Mixed hyperlipidemia (principal); E11.9 Type 2 diabetes mellitus without complications; E03.9 Hypothyroidism, unspecified; E55.9 Vitamin D deficiency, unspecified; R53.83 Other fatigue; Z79.899 Other long term (current) drug therapy
CPT/HCPCS: 80053; 80061; 81003; 82306; 83036; 84443; 85025; 87077; 87086; 87184

== ENCOUNTER → 2025-03-30 16:10 | Outpatient (BNVA) | payer MEDICARE, SELFPAY ==
[2025-03-11 16:30] VITALS: BP 132/84; BMI 28.7
== END ==
PROVIDERS: PCP Nurse Practitioner Family; Visit Provider Nurse Practitioner Family
DX: R32 Unspecified urinary incontinence (principal); N39.0 Urinary tract infection, site not specified; R53.83 Other fatigue
CPT/HCPCS: 81003; 87086

== ENCOUNTER 2025-05-12 09:56 | Outpatient (CLI) | payer MEDICARE, SELFPAY ==
[2024-12-11 08:38] VITALS: BP 108/71; BMI 30.2
[2025-03-11 16:30] VITALS: BP 132/84; BMI 28.7
--- NOTE | 2025-05-12 10:00 | MM_ITS ---
WS: [id number] BILATERAL SCREENING DIGITAL TOMOSYNTHESIS MAMMOGRAM WITH CAD HISTORY: Z12.31 - Encounter for screening mammogram for malignant ... COMPARISON: 04/15/2024, 03/21/2023 and 02/08/2021 Bilateral CC and MLO views with tomosynthesis and synthetic mammography submitted. Computer aided detection analyzed. Breast composition: There are scattered areas of fibroglandular density. No suspicious masses, microcalcifications or architectural distortion. Benign calcifications in each breast. MM/MM scr BI tomosynthesis [id number] IMPRESSION: BI-RADS: 2 - Benign. FOLLOW UP: 1 Year Follow-up
== END 2025-05-12 09:57 | disposition home or self-care (01) ==
PROVIDERS: PCP Nurse Practitioner Family; Visit Provider Nurse Practitioner Family
DX: Z12.31 Encounter for screening mammogram for malignant neoplasm of breast (principal); R92.323 Mammographic fibroglandular density, bilateral breasts; R92.1 Mammographic calcification found on diagnostic imaging of breast
CPT/HCPCS: 77063; 77067

== ENCOUNTER → 2025-06-18 09:53 | Outpatient (BNVA) | payer MEDICARE, SELFPAY ==
[2025-03-11 16:30] VITALS: BP 132/84; BMI 28.7
== END ==
PROVIDERS: PCP Nurse Practitioner Family; Visit Provider Student in an Organized Health Care Education/Training Program
DX: R13.10 Dysphagia, unspecified (principal)
CPT/HCPCS: 99204

== ENCOUNTER 2025-06-24 09:08 | Day surgery (SDC) | payer MEDICARE, SELFPAY ==
[2025-03-11 16:30] VITALS: BP 132/84; BMI 28.7
[2025-06-24 09:50] VITALS: BP 126/82; PULSE 53; RESP 16; TEMP 36.1; O2SAT 96
--- NOTE | 2025-06-24 10:15 | ANES.PREANE2 ---
Pre-Anesthetic Assessment Height/Weight: Height 1.55 m Weight 66.678 kg Temp Pulse Resp BP Pulse Ox O2 Del Method 97.0 F L 53 L 16 126/82 96 Room Air 06/24/25 09:50 06/24/25 09:50 06/24/25 09:50 06/24/25 09:50 06/24/25 09:50 06/24/25 09:50 Operation Date: 06/24/25 10:45 Proposed Procedures p EGD EGD with Biopsy 97718 R13.10(Not Applicable) - Maximiliano Armenta MD Familial anesthetic complications: none Was Beta Cj taken within 24 hours: Yes Was Clonidine taken within 24 hours: N/A Last intake: Intake Last Liquid Date 06/24/25 Last Liquid Time 07:00 Last Solid Date 06/23/25 Last Solid Time 19:00 Social No alcohol and No tobacco Exam alert and oriented x 3 Airway Submandibular: within normal limits Cervical ROM: within normal limits Mallampati: Class III Dentition: false (uppers) Pulmonary Chronic Obstructive Pulmonary Disease CV/HEM Hypertension CP- pt reports clean heart cath a few years ago hasnt needed nitros in over a year no stents or surgeries None reported Hepatic None reported GI Gastroesophageal Reflux Disease Metabolic Diabetes Mellitus, Hyperlipidemia and Thyroid Disease Musc/skel Lower Back Pain and Osteoarthritis/DJD Neuropsych None reported Anesthetic Plan ASA status: 3 Anesthesia: Anesthesia Evaluation and MAC Medications/Allergies Home Medications ?Medication ?Instructions ?Recorded ?Confirmed ?Last Taken ?Type aspirin 81 mg chewable tablet 81 mg PO DAILY 12/21/19 06/23/25 06/21/25 History potassium 99 mg tablet 99 mg PO DAILY 11/30/20 06/23/25 06/21/25 History flash glucose scanning reader #1 ea 01/23/21 06/23/25 Unknown Rx (FreeStyle Samia 14 Day [place]) docusate sodium 100 mg capsule 100 mg PO BID 30 days #60 caps 02/10/21 06/23/25 06/21/25 Rx (Colace) blood sugar diagnostic (FreeStyle #100 ea 04/27/21 06/23/25 Unknown Rx Test strips) nocturnal oxygen #1 ea 12/27/21 06/23/25 Unknown Rx oxycodone 10 mg tablet 10 mg PO QID PRN Pain 07/11/22 06/23/25 06/21/25 History blood sugar diagnostic (Blood #50 ea 12/20/22 06/23/25 Unknown Rx Glucose Test strips) blood-glucose meter (Blood Glucose #1 ea 12/20/22 06/23/25 Unknown Rx Monitoring kit) pen needle, diabetic 29 gauge x #100 ea 01/29/23 06/23/25 Unknown Rx 1/2 (BD Ultra-Fine Original Pen Needle) nitroglycerin 0.4 mg sublingual 0.4 mg sublingual Q5M PRN Chest 11/01/23 06/23/25 Unknown Rx tablet (Nitrostat) Pain #20 tabs hydroxyzine pamoate 25 mg capsule 25 mg PO BID PRN anxiety #180 caps 08/19/24 06/23/25 06/17/25 Rx (Vistaril) trazodone 100 mg tablet 100 mg PO BEDTIME PRN insomnia 03/03/25 06/23/25 06/21/25 Rx #180 tabs pregabalin 200 mg capsule (Lyrica) 200 mg PO TID 30 days #90 caps 04/19/25 06/23/25 06/21/25 Rx oxybutynin chloride 10 mg 10 mg PO DAILY 30 days #30 tabs 05/12/25 06/23/25 06/21/25 Rx tablet,extended release 24 hr flash glucose sensor (FreeStyle #2 kits 06/07/25 06/23/25 Unknown Rx Samia 14 Day Sensor kit) albuterol sulfate 90 mcg/actuation 2 inh inhalation Q6H PRN Shortness 06/21/25 06/23/25 Unknown History aerosol inhaler Of Breath aripiprazole 2 mg tablet (Abilify) 2 mg PO QAM 06/21/25 06/23/25 06/21/25 History cyclobenzaprine 10 mg tablet 10 mg PO DAILY PRN Muscle Spasm 06/21/25 06/23/25 06/20/25 History fenofibrate nanocrystallized 145 145 mg PO DAILY 06/21/25 06/23/25 06/21/25 History mg tablet isosorbide mononitrate 30 mg 30 mg PO DAILY 06/21/25 06/23/25 06/24/25 History tablet,extended release 24 hr levothyroxine 75 mcg tablet 75 mcg PO DAILY 06/21/25 06/23/25 06/24/25 History metoprolol succinate 100 mg 100 mg PO DAILY 06/21/25 06/23/25 06/24/25 History tablet,extended release 24 hr simvastatin 40 mg tablet 40 mg PO DAILY 06/21/25 06/23/25 06/21/25 History spironolactone 25 mg tablet 25 mg PO DAILY 06/21/25 06/23/25 06/21/25 History tirzepatide 15 mg/0.5 mL 15 mg SUBCUT .WEEKLY 06/21/25 06/23/25 06/14/25 History subcutaneous pen injector (Mounjaro) Allergies Allergy/AdvReac Type Severity Reaction Status Date / Time fluticasone (From Advair Allergy ALGY Verified 06/21/25 13:05 Diskus) salmeterol (From Advair Allergy ALGY-Anaphy Verified 06/21/25 13:05 Diskus) laxis butorphanol (From Stadol) AdvReac MAKES Verified 06/21/25 13:05 HER CRAZY fluoxetine (From Prozac) AdvReac rash Verified 06/21/25 13:05 Current Medications Generic Name Dose Route Start Last Admin Trade Name Freq PRN Reason Stop Dose Admin Sodium Chloride 1,000 mls @ 15 mls/hr 06/24/25 09:24 06/24/25 09:49 Sodium Chloride 0.9% IV 06/25/25 09:23 15 mls/hr .Q24H PRN Administration COLONOSCOPY FLUIDS PFSH Anesthesia Medical History Dysphagia, unspecified type Urinary tract infection Chronic back pain Urinary incontinence Conjunctivitis Vasomotor symptoms due to menopause Hemoglobin A1c less than 7.0% Diastolic blood pressure less than 80 mm Hg Type 2 diabetes mellitus with hemoglobin A1c goal of less than 7.0% BMI 29.0-29.9,adult Lower respiratory infection Right hip pain Psychiatric care Decreased GFR Right leg pain Chronic back pain greater than 3 months duration Diabetes mellitus, type II Acute UTI Upper respiratory infection Bronchitis Chronic nausea Chronic obstructive pulmonary disease Arthritis Breast cancer screening by mammogram Gout Chronic idiopathic constipation Insomnia Hypothyroid Mixed hyperlipidemia Medication management Fatigue Vitamin D deficiency Strain of right knee AC joint pain Generalized anxiety disorder Chronic post-traumatic stress disorder Major depressive disorder, recurrent severe without psychotic features Long-term current use of opiate analgesic Pain management contract signed DDD (degenerative disc disease), lumbar Facet syndrome, lumbar DDD (degenerative disc disease), cervical Cervical post-laminectomy syndrome Surgical History H/O lumbosacral spine surgery Kitty Denny Cleaned out lumbar spine leg pain following H/O cervical spine surgery 2005 Dr. Alex Tang, [place] Metal implant S/P sinus surgery S/P partial hysterectomy S/P tubal ligation S/P right inguinal hernia repair S/P cholecystectomy S/P appendectomy Family History Other Cancer Diabetes Heart disease Social History Smoking and tobacco/nicotine status: former use of tobacco/nicotine Quit status (tobacco/nicotine): has quit using Year quit tobacco: quit 2006 Former quit date comment: 4ppd x 30 years Second hand smoke exposure: No Alcohol intake: current Alcohol intake frequency: few times a month Alcohol type: other Substance/Drug Use: never
--- NOTE | 2025-06-24 10:49 | W.PM.OPSUD ---
Surgery/Procedure H&P Update DATE OF PROCEDURE: June 24, 2025 DATE H&P PERFORMED: 06/18/25 H&P UPDATE INFORMATION: I have reviewed H&P completed within last 30 days, I have examined patient prior to procedure and No changes to prior documentation PLANNED PROCEDURE: Operation Date: 06/24/25 10:45 Proposed Procedures p EGD EGD with Biopsy 18456 R13.10(Not Applicable) - Maximiliano Armenta MD
[2025-06-24 11:01] VITALS: BP 109/63; PULSE 51; RESP 18; TEMP 36.4; O2SAT 100
[2025-06-24 11:30] VITALS: BP 113/68; PULSE 52; RESP 16; O2SAT 96
--- NOTE | 2025-06-24 11:30 | ANE.PACU2 ---
Inpatient post-anesthesia follow up: Airway intact: Yes Vital signs: Temperature 97.6 F Pulse Rate 52 Respiratory Rate 16 Blood Pressure 113/68 Pulse Oximetry 96 Oxygen Delivery Me thod Room Air Oxygen Flow Rate Fraction of Inspir ed Oxygen Hydration adequate: Yes Nausea and vomiting: No Pain level: 1 Mental status: Baseline
== END 2025-06-24 11:30 | disposition home or self-care (01) ==
PROVIDERS: PCP Nurse Practitioner Family; Visit Provider Student in an Organized Health Care Education/Training Program
PROC: 0DJ08ZZ Inspection of Upper Intestinal Tract, Via Natural or Artificial Opening Endoscopic (ICD-10-PCS; principal; 2025-06-24 10:45)
DX: R13.10 Dysphagia, unspecified (principal); K29.50 Unspecified chronic gastritis without bleeding; Z87.891 Personal history of nicotine dependence; E11.9 Type 2 diabetes mellitus without complications; J44.9 Chronic obstructive pulmonary disease, unspecified; E03.9 Hypothyroidism, unspecified; E78.2 Mixed hyperlipidemia; F43.12 Post-traumatic stress disorder, chronic; Z79.891 Long term (current) use of opiate analgesic; F41.9 Anxiety disorder, unspecified; Z79.82 Long term (current) use of aspirin; Z79.84 Long term (current) use of oral hypoglycemic drugs; Z99.81 Dependence on supplemental oxygen; K21.9 Gastro-esophageal reflux disease without esophagitis
CPT/HCPCS: 43239; 88305; 88342; J2704; J7030

== ENCOUNTER → 2025-07-08 13:04 | Outpatient (BNVA) | payer MEDICARE, SELFPAY ==
[2025-03-11 16:30] VITALS: BP 132/84; BMI 28.7
== END ==
PROVIDERS: PCP Nurse Practitioner Family; Visit Provider Student in an Organized Health Care Education/Training Program
DX: Z09 Encounter for follow-up examination after completed treatment for conditions other than malignant neoplasm (principal)
CPT/HCPCS: 99213

== ENCOUNTER → 2025-08-18 12:25 | Outpatient (BNVA) | payer MEDICARE, SELFPAY ==
[2025-07-29 11:27] VITALS: BP 132/84; BMI 28.7
== END ==
PROVIDERS: PCP Nurse Practitioner Family; Visit Provider Internal Medicine
DX: R07.9 Chest pain, unspecified (principal); E11.9 Type 2 diabetes mellitus without complications; Z79.85 Long-term (current) use of injectable non-insulin antidiabetic drugs; E66.9 Obesity, unspecified; Z68.29 Body mass index [BMI] 29.0-29.9, adult; E78.2 Mixed hyperlipidemia; Z87.891 Personal history of nicotine dependence; R06.02 Shortness of breath
CPT/HCPCS: 93005; 99204

== ENCOUNTER 2025-09-10 08:33 | Outpatient (CLI) | payer MEDICARE, SELFPAY ==
[2025-07-29 11:27] VITALS: BP 132/84; BMI 28.7
--- NOTE | 2025-09-10 | ECG_ITS ---
[employer] Test Date: 2025-09-10 Pat Name: Dahlia Person Department: Room: Gender: Female Business Analytics Director: : 1955 Requested By: Hernesto Gabriel Order Number: [id number] Arben MD: Juvenal Serrano M.D. Interpretive Statements Procedure: A total of 0.4 mg of Lexiscan was infused over 20 seconds. The stress phase was continued for a total of 5 minutes. Sestamibi was injected 20 seconds after the Lexiscan infusion. Findings:The patient's baseline blood pressure was 113/90 mmHg with a heart rate of 87 bpm. The resting EKG showed normal sinus rhythm with no ST or T wave abnormalities. After Lexiscan injection the heart rate increased to a maximum of 85 bpm. There is no significant change in the patient's blood pressure. After Lexiscan injection there was no ST or T wave changes and no arrhythmias. Conclusion: 1. Normal EKG response to Lexiscan infusion 2. No Lexiscan induced chest pain or cardiac arrhythmia. 3. Normal blood pressure and heart rate response. 4. Nuclear myocardial perfusion scan pending; see separate report. Electronically Signed On 09-10-2025 16:09:46 CDT by Juvenal Serrano M.D. [email or web address]
--- NOTE | 2025-09-10 08:45 | NMCV_ITS ---
NM cassia perf SPECT r/s* [id number] Dahlia Person Age: 69 Gender: F : 1955 Exam Date: 09/10/2025 09:34 Ordering Phys: Hernesto Gabriel M.D ([email or web address]) Technologist: JOAQUIN Gallegos Exam Location: [facility] Indications: cp STRESS TEST [facility] IMAGE PROTOCOL Rest/Stress 1 Lexiscan Day Radiopharmaceutical Dose (mCi) Administration Site Administered by Rest: Tc-99m 10.6 IV CIRA GallegosMT Sestamibi Stress:Tc-99m 33 IV Antonina Emmanuel, RESIDENCY PROGRAM COORDINATOR Sestamibi Rest: 10-Sep-2025 60 Discovery 630 Stress: 10-Sep-2025 30 Discovery 630 0.4mg Lexiscan. Images obtained in supine and prone position. SPECT RESULTS Technical Quality: Good Raw Data Analysis: Normal Image Corrections: No attenuation or motion correction applied Summed Stress Score: 4 Summed Rest Score: 0 Summed Difference Score: 4 PERFUSION FINDINGS There is a small area of moderately reduced tracer counts in the apical inferolateral wall segment region on the stress images that improves to normal on the resting images. This area is consistent with reversible ischemia. FUNCTIONAL RESULTS (calculated via Gated SPECT) Stress Image LV EF (%): 76 Stress EDV (mL):85 TID: 0.94 Stress ESV (mL):20 FUNCTIONAL FINDINGS: There is normal left ventricular systolic function. IMPRESSIONS 1. Abnormal myocardial perfusion imaging test consistent with a small area of moderate ischemia in the apical inferolateral wall region. 2. Normal left ventricular systolic function, EF 76%. Juvenal Serrano MD, FACC (Electronically Signed) Final Date: 10 September 2025 16:02 S
[2025-09-10 08:46] VITALS: BMI 29.6
[2025-09-10] MEDS: ondansetron 2 mg/ML SDV 2 mL 4 MG IVP (10:20)
[2025-09-10 10:30] VITALS: BP 131/76; PULSE 83
--- NOTE | 2025-09-10 15:00 | USCV_ITS ---
Dahlia Person Age: 69 Gender: F : 1955 Exam Date: 09/10/2025 15:33 Ordering Phys: Hernesto Gabriel M.D ([email or web address]) Technologist: Olvin Marte Exam Location: [facility] [place] Indication: chest pain BP: 117 / 82 HR: 64 Rhythm: Sinus Technical Quality: Adequate MEASUREMENTS (Male / Female) Normal Values 2D ECHO LV Diastolic Diameter PLAX 4.7 cm 4.2 - 5.9 / 3.9 - 5.3 cm IVS Diastolic Thickness 0.9 cm 0.6 - 1.0 / 0.6 - 0.9 cm IVS Systolic Thickness 1.2 cm LVPW Diastolic Thickness 0.9 cm 0.6 - 1.0 / 0.6 - 0.9 cm LVPW Systolic Thickness 1.3 cm LVOT Diameter 2.0 cm LV Ejection Fraction 2D Teich 67.3 % LV Ejection Fraction MOD 4C 66.6 % LV Ejection Fraction MOD 2C 56.1 % LV Ejection Fraction 2C AL 57.5 % LA Diameter 3.4 cm RA Systolic Volume 4C AL 27.1 ml RA Systolic Volume 4C MOD 25.4 ml LA Sys Volume AL 41.6 cm cubed LA Sys Volume Index AL 23.9 cm cubed/m squared Aorta at Sinotubular Diameter 2.7 cm IVC Diameter 1.4 cm M-MODE LA Ao Ratio MM 1.6 AV Cusp Separation MM 1.9 cm DOPPLER AV Peak Velocity 151.0 cm/s LVOT Peak Velocity 132.0 cm/s AV Area Cont Eq vti 2.7 cm squared AV Area Cont Eq pk 2.8 cm squared MV Peak Velocity 151.0 cm/s MV Area PHT 2.9 cm squared Mitral E to A Ratio 0.7 TV Peak Velocity 338.0 cm/s TR Peak Velocity 346.0 cm/s TR Peak Gradient 47.9 mmHg TR Mean Velocity 268.0 cm/s TR Mean Gradient 31.2 mmHg TR Velocity Time Integral 93.4 cm PV Peak Velocity 109.0 cm/s RV Ejection Time 0.3 s FINDINGS Left Ventricle Normal left ventricular size, systolic function and wall thickness, with no regional wall motion abnormalities. Left ventricular ejection fraction is estimated at 60%. Grade I/IV diastolic dysfunction (abnormal relaxation filling pattern), normal to mildly elevated filling pressures. Right Ventricle Normal right ventricular size and systolic function. Right Atrium Normal right atrial size. Left Atrium Moderately increased left atrial size. IA Septum Normal appearance of the interatrial septum. Mitral Valve Moderate mitral annular calcification. Moderately thickened mitral valve. No mitral valve stenosis. Trace mitral valve regurgitation. There appeared to be thickened calcified subvalvular apparatus perhaps calcification of mitral valve.Moderate mitral valve regurgitation. Aortic Valve Normal aortic valve structure. No aortic valve stenosis or regurgitation. Tricuspid Valve Normal tricuspid valve structure. No tricuspid valve stenosis or regurgitation. Normal pulmonary pressure. Pulmonic Valve Normal pulmonic valve structure. No pulmonic valve stenosis or regurgitation. Pericardium No pericardial effusion. Aorta Normal diameter of the aortic root and ascending thoracic aorta. IVC Normal IVC diameter. CONCLUSIONS Normal left ventricular size, systolic function and wall thickness, with no regional wall motion abnormalities. Left ventricular ejection fraction is estimated at 60%. Grade I/IV diastolic dysfunction (abnormal relaxation filling pattern), normal to mildly elevated filling pressures. Moderate mitral annular calcification. Moderately thickened mitral valve. No mitral valve stenosis. Trace mitral valve regurgitation. There appeared to be thickened calcified subvalvular apparatus perhaps calcification of mitral valve.Moderate mitral valve regurgitation. There is no pericardial effusion. Right atrial pressure is around 5 mm of mercury. Anu Corrales MD (Electronically Signed) Final Date: 15 September 2025 12:07 S
== END 2025-09-10 08:34 | disposition home or self-care (01) ==
PROVIDERS: PCP Nurse Practitioner Family; Visit Provider Internal Medicine
DX: R07.9 Chest pain, unspecified (principal); R06.02 Shortness of breath; I51.89 Other ill-defined heart diseases; I51.7 Cardiomegaly; I34.81 Nonrheumatic mitral (valve) annulus calcification; I34.0 Nonrheumatic mitral (valve) insufficiency; I34.9 Nonrheumatic mitral valve disorder, unspecified
CPT/HCPCS: 36415; 78452; 93017; 93306; 96374; 96375; A9500; J2405; J2785

== ENCOUNTER → 2025-09-21 15:46 | Outpatient (BNVA) | payer MEDICARE, SELFPAY ==
[2025-07-29 11:27] VITALS: BP 132/84; BMI 28.7
== END ==
PROVIDERS: PCP Nurse Practitioner Family; Visit Provider Orthopaedic Surgery
DX: M47.816 Spondylosis without myelopathy or radiculopathy, lumbar region (principal); M48.062 Spinal stenosis, lumbar region with neurogenic claudication; M54.2 Cervicalgia; G89.29 Other chronic pain
CPT/HCPCS: 72110; 99203; 99213

== ENCOUNTER 2025-09-27 11:20 | Observation (INO) | payer MEDICARE, SELFPAY ==
[2025-07-29 11:27] VITALS: BP 132/84; BMI 28.7
[2025-09-27] VITALS (14 sets, daily range): BP systolic 104–152; BP diastolic 66–86; PULSE 50–74; RESP 12–20; TEMP 36.7; O2SAT 94–100; BMI 29.6
--- NOTE | 2025-09-27 09:00 | XACV_ITS ---
Exam Room: 2 Ht: 155 cm Wt: 71 kg BSA: 1.78 m2 Gender: Female : 1955 Any Known Allergies: Other Exam Priority: Routine Procedure(s): Procedure Description: Diagnostic procedure Procedure Description: Left Heart Catheterization Procedure Description: Left ventriculography Procedure Description: Coronary Angiography Diagnostic Cath Status: Elective Diagnostic Findings * No significant disease noted in the Left Main, Left Anterior Descending, Right, or Circumflex coronary arteries. * Coronary angiography shows right dominance. Conclusions 1. No significant disease noted in the Left Main, Left Anterior Descending, Right, or Circumflex coronary arteries. 2. Normal left ventricular systolic function. Ejection fraction of 55%. Recommendations * Aggressive risk factor modification. * Outpatient cardiology follow up in 4 weeks. Interventional RX Recommendation: medical therapy and/or counseling Diagnostic RX Recommendation: medical therapy and/or counseling Ventriculography Ejection Fraction: 55.0 % Pressures Phase:Rest AO : 110 / 46 ( 73 ) @ 11:05:00 AM 110 / 47 ( 73 ) @ 11:05:00 AM LV : 117 / -12 / 6 @ 11:04:00 AM 118 / -5 / 9 @ 11:05:00 AM 114 / -5 / 8 @ 11:05:00 AM Valves Phase:DefaultPhase AV : 4.0 @ 11:16:27 AM AV Mean Gradient: 5.0 @ 11:16:27 AM Clinical Evaluation EBL: 5mL-10mL Procedural Details Procedure Consent Obtained. Pre-Procedure Time Out. Identified patient by full name and date of as verbalized by the patient/guarantor. Does the consent match the physician's order: Yes. Accurate & Complete Informed Consent: Yes. Inpatient/Outpatient History & Physical on Chart: Yes. If H&P is completed, is and addenduem needed: Yes; If yes, is the addendum complete: Yes. Visualize and Verify Site with Patient/Guarantor: N/A. Relevant Radiology Images available: Yes. The risks, benefits, and alternatives of sedation and/or procedure were discussed by physician. The patient agrees to continue. Procedure started. [facility] Clinical Fraility Score: 2: Well. Office Executive Indications: Worsening Angina/Abnormal stress testt. Chest Pain Symptom Assessment: Typical Angina Symptoms. Cardiovascular Instability: No. Correct patient, site and procedure confirmed by cath team. PERRLA. Strong, equal hand technical specialist bilaterally. Lungs clear x 5 lobes. IV Site on Arrival: 20 gauge in the left anticubital. IV Fluids: 0.9% NaCl at KVO. 0 mL infused prior to laboratory immunologist. Pre Procedural Pulses: bilateral posterior tibial was Doppled. Pre Procedural Pulses: bilateral radial was 2+. Pre Procedural Pulses: right dorsalis pedis was 3+. Pre Procedural Pulses: left dorsalis pedis was 2+. Oxygen started at 2liters/min via nasal canula. right groin was prepped with chloroprep then draped in the usual sterile fashion. right radial was prepped with chloroprep then draped in the usual sterile fashion. Physician notified. Baseline sample Acquired. HR: 53 BPM. Patient's family in CPRU room #4. Dr. Gabriel will update at the completion of the procedure. Equipment: 6F - Radial. Cardiac Cath Pack. ACIST Manifold Kit Model BT 2000. Heparinized Saline (2 units/mL), 1000 mL bag. Physician arrived. Physician scrubbed in. Immediate Pre-Procedure Time Out. Correct Patient: Yes; Correct Procedure: Yes; Correct Site: Yes; Correct Patient Position: Yes; Correct Supplies: Yes; Dried Flammable Prep: Yes; Blood Products Available: N/A. Lidocaine 1% infiltrated to the right radial. Arterial access obtained. Unable to thread micropuncture wire d/t spasm. Wire and needle out, Dr. Nery cazares manual pressure. Will move to femoral access. Pressure dressing applied to the right radial area. No bleeding or hematoma noted. Palpable radial pulse noted. Lidocaine 1% infiltrated to the right groin. Arterial access obtained with micropuncture set. A 5 montenegr[place] JL4 catheter in over the standard J wire. Multiple views taken of left coronary artery. Catheter removed over the standard J wire. A 5 montenegrin JR4 catheter in over the standard J wire. Multiple views taken of right coronary artery. Catheter removed over the exchange J wire. A 5 montenegrin Angled Pig catheter in over the exchange J wire. EDP Sample taken: LV 117/-13,6; HR: 57 BPM; SpO2: 80%. LV gram performed in SMITH @ 10 mL/second for a total of 30 mL. EDP Sample taken: LV 118/-6,9; HR: 60 BPM; SpO2: 80%. Pullback taken: LV 114/-6,8; AO 110/46(73); Mean: 5mmHg, Peak to Peak: 4mmHg, SEP: 20sec/min; HR: 58 BPM; SpO2: 81%. Catheter removed over the exchange J wire. A Right femoral angiogram was performed to determine safe placement of closure device. A Mynx was unsuccessful obtaining hemostatsis at the Right Femoral artery insertion site. Mynx placed without complications. No signs or symptoms of hematoma noted. Sterile dressing applied per usual sterile fashion. Lot #[id number] Exp. . Post Procedure: Pulses reassessed and unchanged. PERRLA. Strong, equal hand technical specialist bilaterally. No VTE prophylaxis required. Medication's Wasted: Lidocaine 1% = 10 mL. Medication's Wasted: Nitro = 50 mg. Medication's Wasted: Heparin = 1000 units. Medication's Wasted: Other = Versed 1 mg. Medication's Wasted: Other = Fentanyl 75 mcg. Total IV fluids: 35 mL. Post-op diagnosis: Non-Obstructive CAD. Complications: none. Estimated blood loss: 5mL-10mL. Responsiveness - Normal response to verbal stimuli; alert and oriented, PERRLA. Airway - Unaffected, no intervention required; spontaneous ventilation. Circulation: W/N/L, pulses unchanged. Nausea/Vomiting: No. Vital chart was stopped. Procedure completed. Patient transferred by bed to ICU. Access Site Site: Right Femoral artery Sheath Size: 6 Fr Hemostasis Method: Mynx Hemostasis Success: Unsuccessful Procedure Medications Start: 10:42 AM Stop: 10:42 AM Medication: Versed Amount: 1 mg Route: I.V. Start: 10:42 AM Stop: 10:42 AM Medication: Fentanyl Amount: 50 mcg Route: I.V. Start: 10:49 AM Stop: 10:49 AM Medication: Fentanyl Amount: 25 mcg Route: I.V. Start: 10:52 AM Stop: 10:52 AM Medication: Versed Amount: 1 mg Route: I.V. Start: 10:52 AM Stop: 10:52 AM Medication: Fentanyl Amount: 25 mcg Route: I.V. Start: 10:58 AM Stop: 10:58 AM Medication: Fentanyl Amount: 25 mcg Route: I.V. Start: 10:59 AM Stop: 10:59 AM Medication: Versed Amount: 1 mg Route: I.V. I, the attending physician, have reviewed and verified all procedure medications. Yes, all medications given per verbal order History/Risk Factors Hypertension: No Dyslipidemia: Yes Peripheral Arterial Disease (PAD): No Myocardial Infarction (VT): No Obesity: No Renal Disease: No Tobacco Use: Former Prior Interventions PCI: No CABG: No Valve Surgery: No Report Signatures Finalized by Hernesto Gabriel MD on 09/27/2025 11:39 AM
[2025-09-27 09:17] LABS: Hematocrit 44.1 % (36-47); Hemoglobin 14.70 g/dL (11.27-16.99); Mean Corpuscular HGB Conc 33.3 g/dL (30-55); Mean Corpuscular Hemoglobin 29.5 pg (27-33); Mean Corpuscular Volume 88.6 fl (85-98); Nucleated Red Blood Cells % 0 %; Platelet Count 186 10^3/cmm (157-399); Red Blood Count 4.98 10^6/uL (3.85-5.65); White Blood Count 4.63 10^3/uL (3.29-11.43)
[2025-09-27 09:38] LABS: Anion Gap 14.9 (5-19); Blood Urea Nitrogen 26 mg/dL (8-23); Calcium 9.8 mg/dL (8.5-10.5); Carbon Dioxide 25 mmol/L (22-29); Chloride 103 mmol/L (98-107); Glucose 98 mg/dL (65-115); Osmolality Calculated 293 mOsm/kg (285-295); Potassium 3.9 mmol/L (3.5-5.1); Sodium 139 mmol/L (136-145)
--- NOTE | 2025-09-27 10:42 | W.PM.OPSFHP ---
Same Day Surgery H&P Indication for Procedure/HPI DATE OF PROCEDURE: September 27, 2025 CHIEF COMPLAINT/INDICATIONFOR SURGICAL PROCEDURE: Chest pain/ abnormal stress test PREOP DIAGNOSIS: Worsening angina/ abnormal stress test PLANNED PROCEDURE: Operation Date: 09/27/25 10:00 Proposed Procedures p Cardiac Catheterization - [facility] w/wo LV & Coros(Left) - Hernesto Gabriel M.D Possible percutaneous coronary intervention 69-year-old woman who has been having worsening chest pain symptoms. Stress test was performed that was abnormal. Given worsening of symptoms on isosorbide and metoprolol, decision made to proceed with coronary angiogram. Medications/Allergies* Home Medications ?Medication ?Instructions ?Recorded ?Confirmed ?Type aspirin 81 mg chewable tablet 81 mg PO DAILY 12/21/19 09/27/25 History Held on 06/24/25. Instructions: Resume on 06/25/25. potassium 99 mg tablet 99 mg PO DAILY 11/30/20 09/27/25 History albuterol sulfate 90 mcg/actuation 2 inh inhalation Q6H PRN Shortness 06/21/25 09/27/25 History aerosol inhaler Of Breath fenofibrate nanocrystallized 145 145 mg PO DAILY 06/21/25 09/27/25 History mg tablet levothyroxine 75 mcg tablet 75 mcg PO DAILY 06/21/25 09/27/25 History oxycodone 10 mg tablet 10 mg PO Q6H PRN Pain 09/27/25 09/27/25 History Allergies/Adverse Reactions Allergy/AdvReac Type Severity Reaction Status Date / Time fluticasone (From Advair Allergy ALGY Verified 09/21/25 11:59 Diskus) salmeterol (From Advair Allergy ALGY-Anaphy Verified 09/21/25 11:59 Diskus) laxis butorphanol (From Stadol) AdvReac MAKES Verified 09/21/25 11:59 HER CRAZY fluoxetine (From Prozac) AdvReac rash Verified 09/21/25 11:59 Current Medications: Generic Name Dose Route Start Last Admin Trade Name Freq PRN Reason Stop Dose Admin Sodium Chloride 1,000 mls @ 50 mls/hr 09/27/25 09:00 09/27/25 09:40 Sodium Chloride 0.9% IV 09/28/25 04:59 Not Given .Q20H ONE Pertinent History/Comorbid Conditions* Medical History (Updated 09/21/25 @ 17:09 by Idris Lantigua DO) Dysphagia, unspecified type Urinary tract infection Chronic back pain Urinary incontinence Conjunctivitis Vasomotor symptoms due to menopause Hemoglobin A1c less than 7.0% Diastolic blood pressure less than 80 mm Hg Type 2 diabetes mellitus with hemoglobin A1c goal of less than 7.0% BMI 29.0-29.9,adult Lower respiratory infection Right hip pain Psychiatric care Decreased GFR Right leg pain Chronic back pain greater than 3 months duration Diabetes mellitus, type II Acute UTI Upper respiratory infection Bronchitis Chronic nausea Chronic obstructive pulmonary disease Arthritis Breast cancer screening by mammogram Gout Chronic idiopathic constipation Insomnia Hypothyroid Mixed hyperlipidemia Medication management Fatigue Vitamin D deficiency Strain of right knee AC joint pain Generalized anxiety disorder Chronic post-traumatic stress disorder Major depressive disorder, recurrent severe without psychotic features Long-term current use of opiate analgesic Pain management contract signed DDD (degenerative disc disease), lumbar Facet syndrome, lumbar DDD (degenerative disc disease), cervical Cervical post-laminectomy syndrome Surgical History (Updated 05/29/21 @ 15:12 by SIL Martins) H/O lumbosacral spine surgery Kitty Denny Cleaned out lumbar spine leg pain following H/O cervical spine surgery 2005 Dr. Alex Tang, [place] Metal implant S/P sinus surgery S/P partial hysterectomy S/P tubal ligation S/P right inguinal hernia repair S/P cholecystectomy S/P appendectomy Family History (Updated 12/21/19 @ 14:20 by Casandra Maria, [place]) Diabetes Heart disease Cancer Social History Smoking and tobacco/nicotine status: former use of tobacco/nicotine Quit status (tobacco/nicotine): has quit using Year quit tobacco: quit 2006 Former quit date comment: 4ppd x 30 years Second hand smoke exposure: No Alcohol intake: current Alcohol intake frequency: few times a month Alcohol type: other Substance/Drug Use: never Pertinent Exam Findings alert, oriented x 3, clear to auscultation bilaterally and regular rate & rhythm Conscious Sedation Assessment PATIENT ASSESSED PRIOR TO SEDATION, WITH NO CHANGE NOTED: Yes AIRWAY EVAL/ANESTHESIA PLAN: normal airway, ASA III, Local Anesthesia, Risks, benefits & alternatives of sedation and/or procedure discussed and Patient agrees to continue as planned ADDITIONAL INFORMATION: Moderate sedation Recommendations Risks and benefits of procedure reviewed and Patient/family agree to proceed Surgery/Procedure today (Left heart cath with possible percutaneous coronary intervention) Coding Level of Care Code Acute Code for Chg Fwd
--- NOTE | 2025-09-27 16:34 | PC.NURSE ---
Pt was discharged at 1630 after all conditions of discharge were met. Both sites had dry dressings intact at time of discharge.
== END 2025-09-27 16:35 | disposition home or self-care (01) ==
LOC: ICU 11:21
PROVIDERS: Admitting Provider Internal Medicine; PCP Nurse Practitioner Family; Visit Provider Internal Medicine
DX: R07.9 Chest pain, unspecified (principal); R94.39 Abnormal result of other cardiovascular function study; E78.5 Hyperlipidemia, unspecified; Z87.891 Personal history of nicotine dependence; Z79.82 Long term (current) use of aspirin; Z79.891 Long term (current) use of opiate analgesic; E11.9 Type 2 diabetes mellitus without complications; J44.9 Chronic obstructive pulmonary disease, unspecified; E03.9 Hypothyroidism, unspecified; F43.12 Post-traumatic stress disorder, chronic; F33.9 Major depressive disorder, recurrent, unspecified
CPT/HCPCS: 36415; 80048; 85025; 93458; 99152; 99153; C1760; C1769; C1887; C1894; G0269; G0378; J1644; J2250; J3010; J3490; J7030; J9999; Q0163; Q9967

== ENCOUNTER → 2025-10-05 14:57 | Outpatient (BNVA) | payer MEDICARE, SELFPAY ==
[2025-07-29 11:27] VITALS: BP 132/84; BMI 28.7
== END ==
PROVIDERS: PCP Nurse Practitioner Family; Visit Provider Internal Medicine
DX: R07.9 Chest pain, unspecified (principal); Z87.891 Personal history of nicotine dependence
CPT/HCPCS: 99213

== ENCOUNTER 2025-10-06 13:47 | Outpatient (CLI) | payer MEDICARE, SELFPAY ==
[2025-07-29 11:27] VITALS: BP 132/84; BMI 28.7
--- NOTE | 2025-10-06 14:00 | MRR_ITS ---
PROCEDURE INFORMATION: Exam: MR Lumbar Spine Without Contrast Exam date and time: 10/06/2025 2:39 PM Age: 69 years old Clinical indication: Low back pain; Chronic lbp 30+ yrs. Ble pain RT greater. Cerival fusion, lumbar laminectomy, appendix, gb, hernia, tubal TECHNIQUE: Imaging protocol: Magnetic resonance imaging of the lumbar spine without contrast. COMPARISON: CT lumbar spine wo con* [id number] 02/09/2025 12:53 PM FINDINGS: Bones/joints: Vertebral marrow signal is maintained. There are no suspicious osseous lesions. Vertebral bodies demonstrate a normal height. There is a mild levoscoliosis of the lumbar spine centered at L3-L4. Spinal cord: Visualized cord, conus medullaris and cauda equina are unremarkable without compression. Conus medullaris is located at the L2 level and is normal in signal intensity. Disc spaces: There is disc desiccation at L2-L3, L3-L4, L4-L5, and L5-S1. Disc space heights: There is disc space narrowing at L4-L5 and L5-S1. L1-L2: No significant disc bulge or herniation. No severe spinal canal stenosis. No significant neural foraminal narrowing. L2-L3: No significant disc bulge or herniation. No severe spinal canal stenosis. No significant neural foraminal narrowing. L3-L4: No significant disc bulge or herniation. No severe spinal canal stenosis. No significant neural foraminal narrowing. L4-L5: There is no disc protrusion or spinal canal or neural foraminal stenosis. There is moderate bilateral facet arthrosis causing mild right neural foraminal stenosis without left neural foraminal stenosis or spinal canal stenosis. . L5-S1: No significant disc bulge or herniation. No severe spinal canal stenosis. No significant neural foraminal narrowing. There is moderate bilateral facet arthrosis. Soft tissues: Unremarkable. Retroperitoneum: There are bilateral renal cysts measuring up to 3.6 cm on the left. MR/MR lumbar spine wo con* [id number] IMPRESSION: 1. Multilevel spondylotic changes as above. 2. Disc desiccation at L2-L3, L3-L4, L4-L5, and L5-S1 with disc space narrowing at L4-L5 and L5-S1. 3. Mild right neural foraminal stenosis at L4-L5 without spinal canal or neural foraminal stenosis. 4. Bilateral renal cysts. No follow-up is needed Bosniak I and II: No follow-up is typically required unless the cyst becomes symptomatic. These cysts are considered benign and have a very low risk of malignancy. COMMENTS: Consistent with the [employer]'s Incidental Findings Committee white paper (J Am Delia Radiol 2018): Any incidental renal lesion less than 1 cm or classified as too small to characterize, or any incidental cystic renal lesion characterized as simple-appearing, is likely benign. No follow-up imaging is recommended for these lesions per consensus recommendations based on imaging criteria.
== END 2025-10-06 13:48 | disposition home or self-care (01) ==
LOC: RAD 13:49
PROVIDERS: PCP Nurse Practitioner Family; Visit Provider Orthopaedic Surgery
DX: M54.9 Dorsalgia, unspecified (principal); G89.29 Other chronic pain; M47.816 Spondylosis without myelopathy or radiculopathy, lumbar region; M48.061 Spinal stenosis, lumbar region without neurogenic claudication; N28.1 Cyst of kidney, acquired; M51.26 Other intervertebral disc displacement, lumbar region
CPT/HCPCS: 72148

== ENCOUNTER → 2025-10-11 10:45 | Outpatient (BNVA) | payer MEDICARE, SELFPAY ==
[2025-07-29 11:27] VITALS: BP 132/84; BMI 28.7
== END ==
PROVIDERS: PCP Nurse Practitioner Family; Visit Provider Nurse Practitioner Family
DX: E78.2 Mixed hyperlipidemia (principal); E03.9 Hypothyroidism, unspecified; E55.9 Vitamin D deficiency, unspecified; E11.9 Type 2 diabetes mellitus without complications; R53.83 Other fatigue; Z79.899 Other long term (current) drug therapy
CPT/HCPCS: 80053; 80061; 81003; 82306; 83036; 84443

== ENCOUNTER → 2025-10-14 13:46 | Outpatient (BNVA) | payer MEDICARE, SELFPAY ==
[2025-10-12 16:15] VITALS: BP 150/82; BMI 30.4
== END ==
PROVIDERS: PCP Nurse Practitioner Family; Visit Provider Orthopaedic Surgery
DX: M54.16 Radiculopathy, lumbar region (principal); Z51.89 Encounter for other specified aftercare
CPT/HCPCS: 99213

== ENCOUNTER → 2025-11-08 16:13 | Outpatient (BNVA) | payer MEDICARE, SELFPAY ==
[2025-10-12 16:15] VITALS: BP 150/82; BMI 30.4
== END ==
PROVIDERS: PCP Nurse Practitioner Family; Visit Provider Nurse Practitioner Family
DX: J06.9 Acute upper respiratory infection, unspecified (principal)
CPT/HCPCS: 87400; 87426